=== PATIENT | female | born 1995 | race Caucasian/White ===

== ENCOUNTER 2021-08-20 20:48 | Emergency (ER) | payer MEDICAID ==
[~2021-08-20] VITALS: Ht 165.1 cm; Wt 71.0 kg
[2021-08-20] MEDS ORDERED: ACETAMINOPHEN 325MG TABLET PO ONE (21:30)
[2021-08-20 23:03] VITALS: BP 130/75
== END 2021-08-20 23:08 | disposition home or self-care (01) ==
LOC: ER 20:48
DX: M79.18 Myalgia, other site (principal); M25.561 Pain in right knee; M25.562 Pain in left knee
CPT/HCPCS: 73562; 81025; 99283